=== PATIENT | female | born 1980 | race Caucasian/White ===

== ENCOUNTER → 2023-03-18 | Emergency (ER) | payer MEDICAID ==
[~2023-03-18] VITALS: Ht 152.4 cm; Wt 63.5 kg
[2023-03-18 21:21] VITALS: BP 129/77; TEMP 98.4; O2SAT 99
== END | disposition left against medical advice (07) ==
LOC: ER 20:17
DX: M54.2 Cervicalgia (principal); Z53.21 Procedure and treatment not carried out due to patient leaving prior to being seen by health care provider